=== PATIENT | male | born 1940 | race Caucasian/White ===

== ENCOUNTER 2019-04-09 20:57 | Emergency (ER) | payer MEDICARE, BC ==
--- NOTE | 2019-04-09 23:17 | EDM.PDOC ---
ED HPI GENERAL MEDICAL PROBLEM - General Chief Complaint: Genitourinary Problem Stated Complaint: BLOOD IN URINE/CATHETER Time Seen by Provider: 04/09/19 22:54 Source of Information: Reports: Patient, Family () History Limitations: Reports: No Limitations - History of Present Illness INITIAL COMMENTS - FREE TEXT/NARRATIVE: The patient states that he was unable to urinate yesterday, 04/08/2019, therefore he went to the [place] urgent care, where a Rubi catheter was placed. The patient states that there was a complication, and that the balloon it may have been inflated before it was in the bladder, causing urethral bleeding. The balloon was deflated, the catheter advanced, then reinflated, allowing good urine output that was bloody. He was discharged home with a prescription for ciprofloxacin that he is supposed to start tomorrow, 2018. They also prescribe a medicine for his prostate, the name of which the patient does not recall. The patient states that this morning he again had bloody urine in the Rubi bag him although he had no discomfort. He returned to the [place] urgent care. He states that the catheter was then irrigated until relatively clear, although he states that the urine output turned bloody again before he was sent home. The patient now presents to the ED because he is concerned about the blood in the urine bag. He denies having any suprapubic pain or pressure. The patient was started on Plavix after he received 3 stents for an acute IN in 2006. He takes Plavix every other day, but was asked to hold it when seen at the urgent care. His last dose was , 04/07/2019. The patient's PCP is Monika Orr NP. His Assistant Pastry Chef is Dr. Ferdinand Don. Bladder Pain Score (Numeric/FACES): 7 - Related Data Allergies Allergy/AdvReac Type Severity Reaction Status Date / Time cephalexin Allergy Swelling Verified 04/09/19 21:27 Home Meds: Home Meds Aspirin [Halfprin] 81 mg PO DAILY 04/09/19 [History] Calcium Carbonate/Vitamin D3 [Calcium 500-Vit D3 200 Caplet] 2 tab PO DAILY [History] Cholecalciferol (Vitamin D3) [Vitamin D3] 1,000 unit PO DAILY 04/09/19 [History] Ciprofloxacin HCl [Cipro] 500 mg PO BID 04/09/19 [History] Clopidogrel [Plavix] 75 mg PO DAILY 04/09/19 [History] Lactobacillus Reuteri [Biogaia Gastrus] 1 tab PO DAILY 04/09/19 [History] Loratadine 10 mg PO DAILY 04/09/19 [History] Losartan [Cozaar] 50 mg PO DAILY 04/09/19 [History] Lutein/Minerals/Vit A,C & E [Ocuvite] 1 tab PO DAILY 04/09/19 [History] Metoprolol Succinate [Toprol XL 100mg] 100 mg PO DAILY 04/09/19 [History] Lawrence-3 Fatty Acids [Maxepa] 2,000 mg PO DAILY 04/09/19 [History] Omeprazole 20 mg PO DAILY 04/09/19 [History] Potassium Chloride [K-Tab ER] 10 meq PO DAILY 04/09/19 [History] Rosuvastatin Calcium [Crestor] 40 mg PO DAILY 04/09/19 [History] Triamterene/Hydrochlorothiazid [Triamterene-HCTZ 37.5-25 MG] 1 tab PO DAILY [History] Past Medical History HEENT History: Reports: Allergic Rhinitis Cardiovascular History: Reports: CAD, High Cholesterol, Hypertension, [place] (2007) Gastrointestinal History: Reports: GERD Genitourinary History: Reports: BPH - Past Surgical History Cardiovascular Surgical History: Reports: Coronary Artery Stent (x 3, 2007), Other (See Below) (Coronary angiogram x 1) Social & Family History - Tobacco Use Smoking Status *Q: Former Smoker Years of Tobacco use: 16 Packs/Tins Daily: 2 Month/Year Tobacco Last Used: Quit 11/05/1974 - Caffeine Use Caffeine Use: Reports: Coffee, Soda - Alcohol Use Alcohol Use History: Yes Alcohol Use Frequency: Socially - Recreational Drug Use Recreational Drug Use: No - Living Situation & Occupation Living situation: Reports: , with Spouse Occupation: Retired ED ROS GENERAL - Review of Systems Review Of Systems: ROS reveals no pertinent complaints other than HPI. ED EXAM, RENAL/ - Physical Exam Exam: See Below Exam Limited By: No Limitations General Appearance: Alert, WD/WN, No Apparent Distress Eye Exam: Bilateral Eye: EOMI, Normal Inspection Ears: Normal External Exam, Hearing Grossly Normal Nose: Normal Inspection Throat/Mouth: Normal Inspection, Normal Lips, Normal Voice, No Airway Compromise Head: Atraumatic, Normocephalic Neck: Normal Inspection, Full Range of Motion Respiratory/Chest: No Respiratory Distress, Lungs Clear, Normal Breath Sounds, No Accessory Muscle Use Cardiovascular: Normal Peripheral Pulses, Regular Rate, Rhythm, No Gallop, No JVD, No Murmur, No Rub GI/Abdominal: Normal Bowel Sounds, Soft, Non-Tender (including suprapubically), No Organomegaly, No Distention, No Abnormal Bruit, No Mass, Other (Rubi catheter to a leg bag with red-tained urine) (Male) Exam: Deferred Rectal (Males) Exam: Deferred Back Exam: Normal Inspection, Full Range of Motion, NT Extremities: Normal Inspection, Normal Range of Motion, No Pedal Edema, Normal Capillary Refill Neurological: Alert, Oriented, Normal Cognition, No Motor/Sensory Deficits Psychiatric: Normal Affect Skin Exam: Warm, Dry, Intact, Normal Color, No Rash Course - Vital Signs Last Recorded V/S: Last Vital Signs Temp 37.1 C 04/09/19 21:16 Pulse 91 04/09/19 21:16 Resp 20 04/09/19 21:16 BP 162/97 H 04/09/19 21:16 Pulse Ox 96 04/09/19 21:16 - Orders/Labs/Meds Orders: Active Orders 24 hr Category Date Time Status Bladder Scan [RC] ASDIRECTED Care 04/09/19 22:56 Active - Re-Assessments/Exams Free Text/Narrative Re-Assessment/Exam: 04/09/19 23:15 The concern that brings the patient to the ED today is that his urine is bloody , not that his Rubi is occluded. We will confirm that by having the patient stand, in order to drain his bladder as much as possible, then check a bladder scan. If there is minimal urine in the bladder, nothing further needs to be done at this time. My other concern is that the patient was prescribed ciprofloxacin yesterday, with instructions to start it tomorrow. I don't see an indication for it. He just had the Rubi catheter placed yesterday, and if he was found to have a UTI , he should have been started on an antibiotic - not ciprofloxacin - yesterday, not tomorrow. We could check a urinalysis today, however, because he now has a Rubi placed, his urine will likely be abnormal, not necessarily indicating that he has a UTI. 04/09/19 23:21 The bladder scan found 2 mL. I will discharge the patient home with the recommendation that he not take the prescribed ciprofloxacin. I will refer him to a Urologist in [place]. Departure - Departure Time of Disposition: 23:22 Disposition: Home, Self-Care 01 Condition: Good Clinical Impression: Gross hematuria, Rubi catheter in place - Discharge Information *PRESCRIPTION DRUG MONITORING PROGRAM REVIEWED*: Not Applicable *COPY OF PRESCRIPTION DRUG MONITORING REPORT IN PATIENT BRANDON: Not Applicable Instructions: Indwelling Urinary Catheter Insertion, Care After, Hematuria, Adult Referrals: Cheri Orr NP [Primary Care Provider] - Ferdinand Don MD [Ordering Only Provider] - Judah Maria MD [Ordering Only Provider] - Forms: ED Department Discharge Additional Instructions: You were seen in the emergency room over a concern about blood in your Rubi catheter bag. Workup in the ER included a bladder scan, which found only 2 mL of urine in your bladder, indicating that your Rubi is draining properly. While alarming to see, the blood in your urine is not harmful from a medical standpoint. We recommend that you continue to withhold your Plavix, but you can continue to take aspirin. We recommend that you NOT start the ciprofloxacin that was prescribed to you 2 days ago. Continue to take the prostate medicine that you were prescribed the other day. Continue to maintain your Rubi catheter as instructed. Make sure that the bag is below your body height when you sleep, so that urine does not backflow into your bladder. Follow-up with the Urologist Dr. Judah Maria, in [place], at the next available appointment. Let the service greeter know that you are following up from the ER. If any other problems, please do not hesitate to return to the ER. - My Orders Last 24 Hours: My Active Orders 04/09/19 22:56 Bladder Scan [RC] ASDIRECTED - Assessment/Plan Last 24 Hours: My Active Orders 04/09/19 22:56 Bladder Scan [RC] ASDIRECTED
== END 2019-04-09 23:38 | disposition home or self-care (01) ==
LOC: JD.ED 20:57
DX: R31.0 Gross hematuria (principal); Z96.0 Presence of urogenital implants; I25.2 Old myocardial infarction; I10 Essential (primary) hypertension; I25.10 Atherosclerotic heart disease of native coronary artery without angina pectoris; Z95.5 Presence of coronary angioplasty implant and graft; Z79.899 Other long term (current) drug therapy; Z88.1 Allergy status to other antibiotic agents; Z79.82 Long term (current) use of aspirin; Z87.891 Personal history of nicotine dependence
CPT/HCPCS: 51798; 99282; 99283